=== PATIENT | male | born 1980 | race Caucasian/White ===

== ENCOUNTER 2017-04-25 18:10 | Emergency (ER) | payer SELFPAY ==
[~2017-04-25] VITALS: Ht 177.8 cm; Wt 77.3 kg
[~2017-04-25 18:10] MED LIST: NO HOME MEDICATIONS
[2017-04-25 18:13] VITALS: BP 132/70; TEMP 100.5
[2017-04-25 19:19] LABS: INFLUENZA B NEGATIVE
[2017-04-25 19:34] LABS: INFLUENZA A POSITIVE
[2017-04-25] MEDS ORDERED: TAMIFLU 75MG75 MG PO (20:08)
[2017-04-25 20:22] VITALS: PULSE 102
== END 2017-04-25 20:23 | disposition home or self-care (01) ==
LOC: COL.ER 18:10
PROVIDERS: Nurse Practitioner
DX: J11.1 Influenza due to unidentified influenza virus with other respiratory manifestations (principal); F17.210 Nicotine dependence, cigarettes, uncomplicated